=== PATIENT | female | born 1950 | race Two or more races ===

== ENCOUNTER 2017-08-21 13:41 | Emergency (ER) | payer OTHER ==
[~2017-08-21] VITALS: Ht 157.5 cm; Wt 76.7 kg
[~2017-08-21 13:41] MED LIST: AUGMENTIN1 TAB.SR2 PO; DIOVAN HCT 80-11 TAB; FOSAMAX5 MG; IBUPROFEN100 MG PO; KETO10TA2 PO; METFORMIN HCL500 MG; NABUMETONE500 MG PO; ORPH100T PO; PERCOCET 5/3251 TAB PO
== END 2017-08-21 17:59 | disposition left against medical advice (07) ==
LOC: ER 13:41
DX: B34.9 Viral infection, unspecified (principal); J11.1 Influenza due to unidentified influenza virus with other respiratory manifestations

== ENCOUNTER 2017-11-27 08:55 | Outpatient (CLI) | payer OTHER | END 2017-11-27 09:09 | disposition home or self-care (01) | LOC: TOM 08:55 | DX: C50.411 Malignant neoplasm of upper-outer quadrant of right female breast (principal); C50.412 Malignant neoplasm of upper-outer quadrant of left female breast; Z90.11 Acquired absence of right breast and nipple; Z90.12 Acquired absence of left breast and nipple; E08.65 Diabetes mellitus due to underlying condition with hyperglycemia; I10 Essential (primary) hypertension; M15.0 Primary generalized (osteo)arthritis; K44.9 Diaphragmatic hernia without obstruction or gangrene; E08.42 Diabetes mellitus due to underlying condition with diabetic polyneuropathy; K57.30 Diverticulosis of large intestine without perforation or abscess without bleeding | CPT/HCPCS: 71260; 74177; Q9965 ==

== ENCOUNTER 2018-05-05 10:55 | Outpatient (CLI) | payer OTHER | END 2018-05-05 11:03 | disposition home or self-care (01) | LOC: SONOGRAMA 10:55 → MAMO-SONO 11:15 | DX: C50.411 Malignant neoplasm of upper-outer quadrant of right female breast (principal); C50.412 Malignant neoplasm of upper-outer quadrant of left female breast; Z90.11 Acquired absence of right breast and nipple; Z90.12 Acquired absence of left breast and nipple; E08.65 Diabetes mellitus due to underlying condition with hyperglycemia; I10 Essential (primary) hypertension; M15.0 Primary generalized (osteo)arthritis; K44.9 Diaphragmatic hernia without obstruction or gangrene; E08.42 Diabetes mellitus due to underlying condition with diabetic polyneuropathy; K57.30 Diverticulosis of large intestine without perforation or abscess without bleeding; D51.0 Vitamin B12 deficiency anemia due to intrinsic factor deficiency; D51.1 Vitamin B12 deficiency anemia due to selective vitamin B12 malabsorption with proteinuria ==

== ENCOUNTER 2018-07-27 12:26 | Outpatient (CLI) | payer OTHER | END 2018-07-27 12:33 | disposition home or self-care (01) | LOC: RAD 12:26 | DX: M25.552 Pain in left hip (principal) ==

== ENCOUNTER 2018-09-02 12:01 | Outpatient (CLI) | payer OTHER | END 2018-09-02 17:00 | disposition home or self-care (01) | LOC: TOM 12:01 | DX: Q76.1 Klippel-Feil syndrome (principal); M41.85 Other forms of scoliosis, thoracolumbar region; M53.0 Cervicocranial syndrome; G95.0 Syringomyelia and syringobulbia; M54.5 Low back pain; M85.80 Other specified disorders of bone density and structure, unspecified site ==

== ENCOUNTER 2018-09-17 13:57 | Outpatient (CLI) | payer OTHER | END 2018-09-17 14:00 | disposition home or self-care (01) | LOC: NUCLEAR 13:57 | DX: M81.0 Age-related osteoporosis without current pathological fracture (principal); Q76.1 Klippel-Feil syndrome; M53.0 Cervicocranial syndrome; G95.0 Syringomyelia and syringobulbia; M41.85 Other forms of scoliosis, thoracolumbar region; M54.5 Low back pain; M85.50 Aneurysmal bone cyst, unspecified site ==

== ENCOUNTER 2018-10-19 08:47 | Emergency (ER) | payer OTHER ==
[~2018-10-19] VITALS: Ht 154.9 cm; Wt 73.9 kg
[2018-10-19] MEDS ORDERED: COZAAR25 MG (09:18)
== END 2018-10-19 12:26 | disposition home or self-care (01) ==
LOC: ER 08:47
DX: M10.062 Idiopathic gout, left knee (principal)

== ENCOUNTER 2018-11-17 13:14 | Outpatient (CLI) | payer OTHER ==
[~2018-11-17 13:14] MED LIST changes: +COZAAR25 MG
== END 2018-11-17 13:21 | disposition home or self-care (01) ==
LOC: RAD 13:14
DX: Q76.1 Klippel-Feil syndrome (principal); M53.0 Cervicocranial syndrome; G95.0 Syringomyelia and syringobulbia; M41.85 Other forms of scoliosis, thoracolumbar region; M54.5 Low back pain; M85.80 Other specified disorders of bone density and structure, unspecified site

== ENCOUNTER 2018-11-29 09:09 | Outpatient (CLI) | payer OTHER | END 2018-11-29 09:12 | disposition home or self-care (01) | LOC: TOM 09:09 | DX: C50.411 Malignant neoplasm of upper-outer quadrant of right female breast (principal); C50.412 Malignant neoplasm of upper-outer quadrant of left female breast; Z90.11 Acquired absence of right breast and nipple; Z90.12 Acquired absence of left breast and nipple; E08.65 Diabetes mellitus due to underlying condition with hyperglycemia; I10 Essential (primary) hypertension; M15.0 Primary generalized (osteo)arthritis; K44.9 Diaphragmatic hernia without obstruction or gangrene; E08.42 Diabetes mellitus due to underlying condition with diabetic polyneuropathy; K57.30 Diverticulosis of large intestine without perforation or abscess without bleeding; D51.0 Vitamin B12 deficiency anemia due to intrinsic factor deficiency; D51.1 Vitamin B12 deficiency anemia due to selective vitamin B12 malabsorption with proteinuria | CPT/HCPCS: 71260; 74177; Q9965 ==

== ENCOUNTER 2019-04-05 09:55 | Inpatient (IN) | payer OTHER ==
[~2019-04-05] VITALS: Ht 167.6 cm; Wt 71.7 kg
[2019-04-05] MEDS ORDERED: XANAX2 MG (12:55)
[2019-04-05] MEDS ORDERED: ZOCOR20 MG (12:56)
[2019-04-05] MEDS ORDERED: COZAAR25 MG (12:56)
[2019-04-05] MEDS ORDERED: EPIDIOLEX100 MG/1 M (12:57)
[2019-04-05] MEDS ORDERED: GLYCOTROL CAPS1 EACH (12:57)
[2019-04-05] MEDS ORDERED: PNEU16DI2 (12:58)
[2019-04-06] MEDS ORDERED: ACYCLOVIR400 MG PO (08:09)
[2019-04-06] MEDS ORDERED: ALPRAZOLAM0.25 MG PO (08:09)
[2019-04-06] MEDS ORDERED: OPTIMAL D350000 UNIT (08:09)
== END 2019-04-07 16:23 | disposition home or self-care (01) | DRG 690 ==
LOC: ER 09:55 → MEDJ 12:36 → SEC-K 12:36 → MEDJ 18:27
PROVIDERS: ADMIT Specialist
PROC: BT4JZZZ Ultrasonography of Kidneys and Bladder (ICD-10-PCS; principal; 2019-04-05)
PROC: 8E0ZXY6 Isolation (ICD-10-PCS; 2019-04-05)
PROC: BW4GZZZ Ultrasonography of Pelvic Region (ICD-10-PCS; 2019-04-06)
DX: N39.0 Urinary tract infection, site not specified (principal); B96.29 Other Escherichia coli [E. coli] as the cause of diseases classified elsewhere; E11.9 Type 2 diabetes mellitus without complications; I10 Essential (primary) hypertension; K57.30 Diverticulosis of large intestine without perforation or abscess without bleeding; K76.0 Fatty (change of) liver, not elsewhere classified; E78.00 Pure hypercholesterolemia, unspecified; M22.42 Chondromalacia patellae, left knee; Q76.1 Klippel-Feil syndrome; Z79.4 Long term (current) use of insulin; Z16.12 Extended spectrum beta lactamase (ESBL) resistance

== ENCOUNTER 2019-05-12 13:50 | Outpatient (CLI) | payer OTHER ==
[~2019-05-12 13:50] MED LIST changes: +ACYCLOVIR400 MG PO; +ALPRAZOLAM0.25 MG PO; +EPIDIOLEX100 MG/1 M; +GLYCOTROL CAPS1 EACH; +OPTIMAL D350000 UNIT; +PNEU16DI2; +XANAX2 MG; +ZOCOR20 MG
== END 2019-05-12 13:55 | disposition home or self-care (01) ==
LOC: SONOGRAMA 13:50 → MAMO-SONO 05-16 10:45
DX: C50.411 Malignant neoplasm of upper-outer quadrant of right female breast (principal); C50.412 Malignant neoplasm of upper-outer quadrant of left female breast; E08.65 Diabetes mellitus due to underlying condition with hyperglycemia; I10 Essential (primary) hypertension; M15.0 Primary generalized (osteo)arthritis; K44.9 Diaphragmatic hernia without obstruction or gangrene; E08.42 Diabetes mellitus due to underlying condition with diabetic polyneuropathy; K57.30 Diverticulosis of large intestine without perforation or abscess without bleeding; D51.0 Vitamin B12 deficiency anemia due to intrinsic factor deficiency; D51.1 Vitamin B12 deficiency anemia due to selective vitamin B12 malabsorption with proteinuria; Z90.13 Acquired absence of bilateral breasts and nipples; K65.0 Generalized (acute) peritonitis

== ENCOUNTER 2019-12-02 13:28 | Outpatient (CLI) | payer OTHER | END 2019-12-02 13:33 | disposition home or self-care (01) | LOC: RAD 13:28 | DX: Z01.811 Encounter for preprocedural respiratory examination (principal) ==

== ENCOUNTER 2020-07-17 11:11 | Outpatient (CLI) | payer OTHER | END 2020-07-17 12:52 | disposition home or self-care (01) | LOC: PPH VACUNA 11:11 | PROVIDERS: ATTEND Emergency Medicine Pediatric Emergency Medicine | DX: Z23 Encounter for immunization (principal) ==

== ENCOUNTER → 2020-07-30 | Outpatient (CLI) | payer OTHER | END | disposition home or self-care (01) | LOC: SONOGRAMA 12:49 | PROVIDERS: ATTEND Pathology Anatomic Pathology & Clinical Pathology | DX: R59.0 Localized enlarged lymph nodes (principal) ==

== ENCOUNTER 2020-08-07 09:38 | Outpatient (CLI) | payer OTHER | END 2020-08-07 14:23 | disposition home or self-care (01) | LOC: PPH VACUNA 09:38 | PROVIDERS: ATTEND Emergency Medicine Pediatric Emergency Medicine | DX: Z23 Encounter for immunization (principal) ==

== ENCOUNTER 2020-10-09 12:59 | Outpatient (CLI) | payer OTHER | END 2020-10-09 13:06 | disposition home or self-care (01) | LOC: LAB 12:59 | PROVIDERS: ATTEND Radiology Diagnostic Radiology | DX: N20.0 Calculus of kidney (principal) ==

== ENCOUNTER 2020-10-16 10:21 | Outpatient (CLI) | payer OTHER | END 2020-10-16 10:40 | disposition home or self-care (01) | LOC: TOM 10:21 | PROVIDERS: ATTEND Internal Medicine Hematology & Oncology | DX: R07.89 Other chest pain (principal); C50.411 Malignant neoplasm of upper-outer quadrant of right female breast; C50.412 Malignant neoplasm of upper-outer quadrant of left female breast; Z90.11 Acquired absence of right breast and nipple; Z90.12 Acquired absence of left breast and nipple; E08.65 Diabetes mellitus due to underlying condition with hyperglycemia; I10 Essential (primary) hypertension; M15.0 Primary generalized (osteo)arthritis; K44.9 Diaphragmatic hernia without obstruction or gangrene; E08.42 Diabetes mellitus due to underlying condition with diabetic polyneuropathy; K57.30 Diverticulosis of large intestine without perforation or abscess without bleeding; D51.1 Vitamin B12 deficiency anemia due to selective vitamin B12 malabsorption with proteinuria | CPT/HCPCS: 71260; 74177; Q9965 ==

== ENCOUNTER 2021-02-22 12:21 | Outpatient (CLI) | payer OTHER | END 2021-02-22 12:27 | disposition home or self-care (01) | LOC: RAD 12:21 | PROVIDERS: ATTEND Specialist | DX: J45.998 Other asthma (principal) ==

== ENCOUNTER 2021-03-14 08:00 | Outpatient (CLI) | payer OTHER | END 2021-03-14 08:30 | disposition home or self-care (01) | LOC: PPH VACUNA 08:00 | DX: Z23 Encounter for immunization (principal) ==

== ENCOUNTER 2021-05-01 12:13 | Outpatient (CLI) | payer OTHER | END 2021-05-01 12:14 | disposition home or self-care (01) | LOC: LAB 12:13 | PROVIDERS: ATTEND Radiology Diagnostic Radiology | DX: R10.84 Generalized abdominal pain (principal) ==

== ENCOUNTER 2021-05-03 08:36 | Outpatient (CLI) | payer OTHER | END 2021-05-03 09:03 | disposition home or self-care (01) | LOC: TOM 08:36 | PROVIDERS: ATTEND General Practice | DX: K57.92 Diverticulitis of intestine, part unspecified, without perforation or abscess without bleeding (principal); R10.84 Generalized abdominal pain; K59.09 Other constipation | CPT/HCPCS: 74177; Q9965 ==

== ENCOUNTER 2021-07-08 12:08 | Emergency (ER) | payer OTHER ==
[~2021-07-08] VITALS: Ht 157.5 cm; Wt 74.4 kg
== END 2021-07-08 15:10 | disposition home or self-care (01) ==
LOC: ER 12:08
DX: M51.37 Other intervertebral disc degeneration, lumbosacral region (principal); M54.59 Other low back pain

== ENCOUNTER 2021-07-26 14:13 | Emergency (ER) | payer OTHER ==
[~2021-07-26] VITALS: Ht 157.5 cm; Wt 74.8 kg
[2021-07-26] MEDS ORDERED: CANDESARTAN CILE4 MG PO (14:34)
[2021-07-26] MEDS ORDERED: DICLOFENAC SODI75 MG PO (16:39)
== END 2021-07-26 16:48 | disposition home or self-care (01) ==
LOC: ER 14:13
DX: M54.59 Other low back pain (principal); M25.562 Pain in left knee

== ENCOUNTER 2021-08-14 14:19 | Outpatient (CLI) | payer OTHER ==
[~2021-08-14 14:19] MED LIST changes: +CANDESARTAN CILE4 MG PO; +DICLOFENAC SODI75 MG PO
== END 2021-08-14 14:26 | disposition home or self-care (01) ==
LOC: RAD 14:19
PROVIDERS: ATTEND Pain Medicine Interventional Pain Medicine
DX: M17.0 Bilateral primary osteoarthritis of knee (principal)

== ENCOUNTER 2022-09-26 13:08 | Emergency (ER) | payer OTHER ==
[~2022-09-26] VITALS: Ht 152.4 cm; Wt 71.2 kg
== END 2022-09-26 16:15 | disposition home or self-care (01) ==
LOC: ER 13:08
DX: M54.59 Other low back pain (principal); Q76.1 Klippel-Feil syndrome; E05.80 Other thyrotoxicosis without thyrotoxic crisis or storm; Z88.8 Allergy status to other drugs, medicaments and biological substances; E11.9 Type 2 diabetes mellitus without complications; Z79.84 Long term (current) use of oral hypoglycemic drugs; Z98.1 Arthrodesis status; M51.36 Other intervertebral disc degeneration, lumbar region

== ENCOUNTER 2022-10-09 11:10 | Outpatient (CLI) | payer OTHER | END 2022-10-09 11:25 | disposition home or self-care (01) | LOC: MAMO-SONO 11:10 | PROVIDERS: ATTEND Internal Medicine Hematology & Oncology | DX: G46.3 Brain stem stroke syndrome (principal); I70.0 Atherosclerosis of aorta; M25.561 Pain in right knee; M25.562 Pain in left knee; C50.411 Malignant neoplasm of upper-outer quadrant of right female breast; C50.412 Malignant neoplasm of upper-outer quadrant of left female breast; E08.65 Diabetes mellitus due to underlying condition with hyperglycemia; I10 Essential (primary) hypertension; M15.0 Primary generalized (osteo)arthritis; K44.9 Diaphragmatic hernia without obstruction or gangrene; E08.42 Diabetes mellitus due to underlying condition with diabetic polyneuropathy; Z90.13 Acquired absence of bilateral breasts and nipples; K57.30 Diverticulosis of large intestine without perforation or abscess without bleeding; D51.0 Vitamin B12 deficiency anemia due to intrinsic factor deficiency; D51.1 Vitamin B12 deficiency anemia due to selective vitamin B12 malabsorption with proteinuria ==

== ENCOUNTER 2023-05-05 12:28 | Outpatient (CLI) | payer OTHER | END 2023-05-05 12:34 | disposition home or self-care (01) | LOC: RAD 12:28 | PROVIDERS: ATTEND Anesthesiology | DX: M54.12 Radiculopathy, cervical region (principal); Z88.1 Allergy status to other antibiotic agents; Z88.6 Allergy status to analgesic agent ==

== ENCOUNTER 2023-07-02 08:38 | Emergency (ER) | payer OTHER ==
[~2023-07-02] VITALS: Ht 157.5 cm; Wt 72.6 kg
== END 2023-07-02 09:55 | disposition home or self-care (01) ==
LOC: ER 08:38
DX: K29.70 Gastritis, unspecified, without bleeding (principal); Z88.8 Allergy status to other drugs, medicaments and biological substances
CPT/HCPCS: 96365; 99284; J3490

== ENCOUNTER 2023-07-30 09:27 | Outpatient (CLI) | payer OTHER ==
[~2023-07-30 09:27] MED LIST changes: +METAXALONE800 MG PO
== END 2023-07-30 10:06 | disposition home or self-care (01) ==
LOC: TOM 09:27
PROVIDERS: ATTEND Specialist
DX: K27.9 Peptic ulcer, site unspecified, unspecified as acute or chronic, without hemorrhage or perforation (principal); K57.90 Diverticulosis of intestine, part unspecified, without perforation or abscess without bleeding; Z88.1 Allergy status to other antibiotic agents; Z87.892 Personal history of anaphylaxis

== ENCOUNTER 2023-08-17 11:58 | Outpatient (CLI) | payer OTHER | END 2023-08-17 12:05 | disposition home or self-care (01) | LOC: TOM 11:58 | PROVIDERS: ATTEND Pain Medicine Interventional Pain Medicine | DX: M54.12 Radiculopathy, cervical region (principal) ==

== ENCOUNTER 2023-10-19 10:38 | Outpatient (CLI) | payer OTHER | END 2023-10-19 10:41 | disposition home or self-care (01) | LOC: SONOGRAMA 10:38 | PROVIDERS: ATTEND Internal Medicine Hematology & Oncology | DX: C50.411 Malignant neoplasm of upper-outer quadrant of right female breast (principal); C50.412 Malignant neoplasm of upper-outer quadrant of left female breast; Z90.11 Acquired absence of right breast and nipple; Z90.12 Acquired absence of left breast and nipple; E08.65 Diabetes mellitus due to underlying condition with hyperglycemia; I10 Essential (primary) hypertension; M15.0 Primary generalized (osteo)arthritis; K44.9 Diaphragmatic hernia without obstruction or gangrene; E08.42 Diabetes mellitus due to underlying condition with diabetic polyneuropathy; K57.30 Diverticulosis of large intestine without perforation or abscess without bleeding; D51.0 Vitamin B12 deficiency anemia due to intrinsic factor deficiency; D51.1 Vitamin B12 deficiency anemia due to selective vitamin B12 malabsorption with proteinuria ==

== ENCOUNTER 2024-02-11 09:58 | Outpatient (CLI) | payer OTHER | END 2024-02-11 09:59 | disposition home or self-care (01) | LOC: NUCLEAR 09:58 | PROVIDERS: ATTEND Internal Medicine Cardiovascular Disease | DX: I47.10 Supraventricular tachycardia, unspecified (principal); G45.9 Transient cerebral ischemic attack, unspecified ==

== ENCOUNTER → 2024-02-12 10:31 | Outpatient (CLI) | payer OTHER | END | disposition home or self-care (01) | LOC: NUCLEAR 10:31 | PROVIDERS: ATTEND Internal Medicine Cardiovascular Disease | DX: G45.9 Transient cerebral ischemic attack, unspecified (principal) ==

== ENCOUNTER 2024-03-08 14:12 | Outpatient (CLI) | payer OTHER | END 2024-03-08 14:17 | disposition home or self-care (01) | LOC: RAD 14:12 | PROVIDERS: ATTEND Internal Medicine Cardiovascular Disease | DX: J84.112 Idiopathic pulmonary fibrosis (principal) ==

== ENCOUNTER 2024-03-24 15:05 | Outpatient (CLI) | payer OTHER ==
[2024-03-24 16:08] LABS: MYCOPLASMA PNEUMONIAE IGM NON REACTIVE (NO REACTIVE)
== END 2024-03-24 15:10 | disposition home or self-care (01) ==
LOC: LAB 15:05
PROVIDERS: ATTEND Specialist
DX: A49.3 Mycoplasma infection, unspecified site (principal); J11.1 Influenza due to unidentified influenza virus with other respiratory manifestations; U07.1 COVID-19

== ENCOUNTER 2024-12-08 11:44 | Outpatient (CLI) | payer OTHER | END 2024-12-08 11:49 | disposition home or self-care (01) | LOC: RAD 11:44 | PROVIDERS: ATTEND Pediatrics Pediatric Gastroenterology | DX: M47.23 Other spondylosis with radiculopathy, cervicothoracic region (principal); M47.22 Other spondylosis with radiculopathy, cervical region; M47.26 Other spondylosis with radiculopathy, lumbar region; M43.8X9 Other specified deforming dorsopathies, site unspecified; G95.0 Syringomyelia and syringobulbia ==

== ENCOUNTER 2024-12-28 14:52 | Emergency (ER) | payer OTHER ==
[~2024-12-28] VITALS: Ht 157.5 cm; Wt 75.3 kg
[2024-12-28] MEDS ORDERED: KETO10TA2 PO (16:30)
[2024-12-28] MEDS ORDERED: KETOROLAC TROMETHAMINE 60 MG VIAL IM ONE ×2 (16:30→16:32)
== END 2024-12-28 19:34 | disposition home or self-care (01) ==
LOC: ER 15:02
DX: M54.16 Radiculopathy, lumbar region (principal); E11.9 Type 2 diabetes mellitus without complications; Z79.84 Long term (current) use of oral hypoglycemic drugs; I10 Essential (primary) hypertension; Z88.8 Allergy status to other drugs, medicaments and biological substances
CPT/HCPCS: 96372; 99282; J1885

== ENCOUNTER → 2024-12-29 | Emergency (ER) | payer OTHER ==
[~2024-12-29] VITALS: Ht 160 cm; Wt 72.6 kg
[~2024-12-29] MED LIST changes: +0.9 % SODIUM CHLORIDE 1,000 ML IV ONE; +CEFTRIAXONE SODIUM 1,000 MG VIAL IM ONE; +PANTOPRAZOLE SODIUM 40 MG/VIAL VIAL IV ONE
[2024-12-29 19:34] LABS: BASO % 0.3 % (0.1-1.2); EOS # 0.13 (0.04-0.54); EOS % 1.3 % (0.7-7.0); HEMOGLOBIN 12.1 g/dL (11.2-15.7); LYMPH # 1.89 (1.18-3.74); LYMPH % 18.2 % (19.3-53.1); MEAN CORPUSCULAR HEMOGLOBIN 29.7 pg (25.6-32.2); MONO # 0.67 (0.24-0.82); MONO % 6.5 % (4.7-12.5); NEUT % 73.3 % (34.0-71.1); PLATELET COUNT 227 K/uL (163-369); RED BLOOD COUNT 4.08 M/uL (3.93-5.22); RED CELL DISTRIBUTION WIDTH 13.2 % (11.6-14.4)
[2024-12-29 20:07] LABS: ALBUMIN 4.2 gm/dL (3.4-5.0); BILIRUBIN TOTAL 0.61 mg/dL (0.3-1.2); CALCIUM 9.1 mg/dL (8.5-10.1); CREATININE SERUM 1.1 mg/dL (0.55-1.02); GFR 48.82; GLOBULINA 3.4 G/DL (2.4-3.5); POTASSIUM 3.87 mEq/L (3.5-5.1); TOTAL PROTEIN 7.6 gm/dL (6.4-8.2)
== END | disposition left against medical advice (07) ==
LOC: ER 15:11
PROVIDERS: Preventive Medicine Public Health & General Preventive Medicine
DX: Z53.21 Procedure and treatment not carried out due to patient leaving prior to being seen by health care provider (principal)

== ENCOUNTER 2024-12-30 09:17 | Emergency (ER) | payer OTHER ==
[~2024-12-30] VITALS: Ht 157.5 cm; Wt 72.6 kg
[~2024-12-30 09:17] MED LIST changes: -0.9 % SODIUM CHLORIDE 1,000 ML IV ONE; -CEFTRIAXONE SODIUM 1,000 MG VIAL IM ONE; -PANTOPRAZOLE SODIUM 40 MG/VIAL VIAL IV ONE
[2024-12-30] MEDS ORDERED: ORPHENADRINE CITRATE 30 MG/ML AMPUL IM ONE (09:45)
[2024-12-30] MEDS ORDERED: MORPHINE SULFATE 4 MG/ML VIAL IV ONE ×2 (09:45→12:30)
[2024-12-30] MEDS ORDERED: ORPHENADRINE CITRATE 30 MG/ML AMPUL ONE (09:52)
[2024-12-30 10:07] LABS: BASO % 0.4 % (0.1-1.2); EOS % 1.4 % (0.7-7.0); HEMATOCRIT 37.7 % (34.1-44.9); HEMOGLOBIN 12.6 g/dL (11.2-15.7); LYMPH # 1.45 (1.18-3.74); LYMPH % 19.9 % (19.3-53.1); MEAN CORPUSCULAR HEMOGLOBIN 29.7 pg (25.6-32.2); MONO # 0.52 (0.24-0.82); MONO % 7.1 % (4.7-12.5); NEUT # 5.15 (1.56-6.13); NEUT % 70.8 % (34.0-71.1); PLATELET COUNT 217 K/uL (163-369); RED BLOOD COUNT 4.24 M/uL (3.93-5.22); RED CELL DISTRIBUTION WIDTH 13.2 % (11.6-14.4)
[2024-12-30 10:29] LABS: PH,URINE 7.5 (5.0-8.0); URINE APPEARANCE Clear; URINE BILIRRUBIN Negative (NEGATIVE); URINE COLOR Yellow; URINE GLUCOSE Negative (NEGATIVE); URINE KETONE Negative (NEGATIVE); URINE LEUKOCYTE Negative; URINE NITRATE Negative; URINE PROTEIN Negative (NEGATIVE); URINE UROBILINOGEN 0.2 E.U./dl
[2024-12-30 10:32] LABS: URINE EPITHELIAL CELLS 1.5 uL (0.0-38.8); URINE RBC 13.2 uL (0.0-20.8)
[2024-12-30 10:41] LABS: URINE BACTERIA 1.2 uL (0.0-1933); URINE BLOOD TRACES; URINE WBC 0.3 uL (0.0-23.2)
== END 2024-12-30 14:24 | disposition home or self-care (01) ==
LOC: ER 09:17
PROVIDERS: Emergency Medicine
DX: M54.16 Radiculopathy, lumbar region (principal); I10 Essential (primary) hypertension; Z88.1 Allergy status to other antibiotic agents; Z88.8 Allergy status to other drugs, medicaments and biological substances
CPT/HCPCS: 36415; 72131; 96365; 96372; 99284; J2270 ×2; J2360

== ENCOUNTER 2025-03-21 08:09 | Outpatient (CLI) | payer OTHER | END 2025-03-21 08:18 | disposition home or self-care (01) | LOC: SONOGRAMA 08:09 | PROVIDERS: ATTEND Specialist | DX: K85.10 Biliary acute pancreatitis without necrosis or infection (principal) ==

== ENCOUNTER 2025-03-30 14:27 | Outpatient (CLI) | payer OTHER | END 2025-03-30 14:31 | disposition home or self-care (01) | LOC: RAD 14:27 | PROVIDERS: ATTEND Specialist | DX: M84.369A Stress fracture, unspecified tibia and fibula, initial encounter for fracture (principal); Z87.81 Personal history of (healed) traumatic fracture ==

== ENCOUNTER 2025-04-19 11:50 | Outpatient (CLI) | payer OTHER | END 2025-04-19 11:52 | disposition home or self-care (01) | LOC: MRI 11:50 | PROVIDERS: ATTEND Orthopaedic Surgery | DX: M25.562 Pain in left knee (principal) | CPT/HCPCS: 73718 ==

== ENCOUNTER 2025-05-01 19:27 | Emergency (ER) | payer OTHER ==
[~2025-05-01] VITALS: Ht 157.5 cm; Wt 71.7 kg
[2025-05-02 00:04] LABS: BASO % 0.3 % (0.1-1.2); EOS # 0.00 (0.04-0.54); EOS % 0.0 % (0.7-7.0); LYMPH # 0.94 (1.18-3.74); LYMPH % 13.0 % (19.3-53.1); MEAN PLATELET VOLUME 10.00 fl (9.4-12.4); MONO # 0.08 (0.24-0.82); MONO % 1.1 % (4.7-12.5); NEUT # 6.15 (1.56-6.13); NEUT % 85.2 % (34.0-71.1); RED CELL DISTRIBUTION WIDTH 13.2 % (11.6-14.4)
[2025-05-02 00:37] LABS: ALT/SGPT 22.0 U/L (12-78); AST/SGOT 18.0 U/L (15-37); BILIRUBIN TOTAL 0.44 mg/dL (0.3-1.2); BUN CREA RATIO 18.0 (7.0-25.0); CREATININE SERUM 1.2 mg/dL (0.55-1.02); GFR 44.16; GLOBULINA 2.9 G/DL (2.4-3.5); OSMOLALITY SERUM 288.0 MOSM/KG (275-295)
[2025-05-02 00:38] LABS: GLUCOSE FASTING 226.0 mg/dL (65-100)
[2025-05-02] MEDS ORDERED: TRAMADOL HCL 50 MG TABLET PO ONE (00:45)
[2025-05-02] MEDS ORDERED: ACETAMINOPHEN 500 MG GEL..CAP PO ONE (01:52)
[2025-05-02] MEDS ORDERED: NORFLEX100MG PO (02:33)
== END 2025-05-02 02:47 | disposition home or self-care (01) ==
LOC: ER 19:27
PROVIDERS: Preventive Medicine Public Health & General Preventive Medicine
DX: M54.50 Low back pain, unspecified (principal); M62.830 Muscle spasm of back; E11.9 Type 2 diabetes mellitus without complications; I10 Essential (primary) hypertension; Z79.84 Long term (current) use of oral hypoglycemic drugs; Z88.1 Allergy status to other antibiotic agents; Z88.8 Allergy status to other drugs, medicaments and biological substances

== ENCOUNTER 2025-05-23 14:05 | Outpatient (CLI) | payer OTHER ==
[~2025-05-23 14:05] MED LIST changes: +NORFLEX100MG PO
== END 2025-05-23 14:12 | disposition home or self-care (01) ==
LOC: RAD 14:05
DX: M54.50 Low back pain, unspecified (principal); M54.6 Pain in thoracic spine; M16.11 Unilateral primary osteoarthritis, right hip

== ENCOUNTER → 2025-06-09 11:19 | Outpatient (CLI) | payer OTHER | END | disposition home or self-care (01) | LOC: NUCLEAR 11:19 | PROVIDERS: ATTEND Physical Medicine & Rehabilitation | DX: M81.0 Age-related osteoporosis without current pathological fracture (principal) ==

== ENCOUNTER 2025-06-26 11:45 | Outpatient (CLI) | payer OTHER | END 2025-06-26 11:47 | disposition home or self-care (01) | LOC: RAD 11:45 | PROVIDERS: ATTEND Orthopaedic Surgery | DX: M25.561 Pain in right knee (principal); M25.562 Pain in left knee ==